=== PATIENT | male | born 1995 | race Caucasian/White ===

== ENCOUNTER 2017-10-18 17:39 | Emergency (ER) | payer BC, OTHER ==
[~2017-10-18] VITALS: Ht 182.9 cm; Wt 120.0 kg
[2017-10-18 17:59] VITALS: TEMP 36.7; Ht 182.9 cm; Wt 120.0 kg
[2017-10-18] MEDS ORDERED: LIDOCAINE HCL 2% JELLY 30 ML TUBE EXT STA (18:14)
[2017-10-18] MEDS ORDERED: LIDOCAINE/EPINEPH/TETRACAINE 1 EA SYR EXT STA (18:14)
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
[2017-10-18] MEDS ORDERED: LIDOCAINE/EPINEPHRINE 1% 20 ML VIAL ONE (18:59)
[2017-10-18 19:50] VITALS: BP 166/69; PULSE 83; O2SAT 96
== END 2017-10-18 20:00 | disposition home or self-care (01) ==
LOC: C.EDB 17:41 → C.EDD 20:00
DX: S01.81XA Laceration without foreign body of other part of head, initial encounter (principal); S60.511A Abrasion of right hand, initial encounter; S60.512A Abrasion of left hand, initial encounter; S00.81XA Abrasion of other part of head, initial encounter; V86.56XA Driver of dirt bike or motor/cross bike injured in nontraffic accident, initial encounter